=== PATIENT | female | born 1955 | race Caucasian/White ===

== ENCOUNTER 2019-10-19 05:10 | Day surgery (SDC) ==
[2019-10-11 13:57] LABS: BASO# 0.01 X1000 (0.0-0.2); BASO% 0.1 % (0.0-0.8); EOS# 0.11 X1000 (0.0-0.7); EOS% 1.3 % (0.0-10.0); HEMOGLOBIN 12.7 g/dL (12.0-16.0); LYMPH# 1.93 X1000 (1.2-3.4); LYMPH% 22.6 % (20.5-51.1); MCH 30.5 PG (27-31); MCHC 32.6 g/dL (33-37); MCV 93.8 FL (81-99); MONO# 0.47 X1000 (0.11-0.59); MONO% 5.5 % (1.7-9.3); MPV 10.2 FL (7.4-10.4); NEUT# 6.02 X1000 (1.4-6.5); NEUT% 70.5 % (42.2-75.2); PLT 256 X1000 (130-400); RBC 4.16 XMIL (4.2-5.4); RDW 13.5 % (11.5-14.5); WBC 8.54 X1000 (4.8-10.8)
[2019-10-11 14:14] LABS: AGAP 13; BUN 15 mg/dL (8-22); CALCIUM 9.2 mg/dL (8.8-10.2); CHLORIDE 103 mmol/L (98-107); COSMO 280; CREATININE 0.8 mg/dL (0.5-0.9); ESTIMATED GFR > 60; GLUCOSE 92 mg/dL (70-104); POTASSIUM 3.8 mmol/L (3.5-5.1); SODIUM 140 mmol/L (136-145); TCO2 24 mmol/L (25-35)
[2019-10-19 10:52] LABS: URINE SOURCE CATH
[2019-10-19 10:57] LABS: BILIRUBIN URINE NEGATIVE (NEGATIVE); BLOOD URINE NEGATIVE (NEGATIVE); COLOR STRAW; GLUCOSE URINE NEGATIVE (NEGATIVE); KETONE URINE NEGATIVE (NEGATIVE); LEUKOCYTES URINE NEGATIVE (NEGATIVE); NITRITE URINE NEGATIVE (NEGATIVE); PROTEIN URINE NEGATIVE (NEGATIVE); SP GRAVITY URINE 1.007; TURBIDITY URINE CLEAR (CLEAR); UR EPITHELIAL CELLS <10 /HPF (<10); URINE BACTERIA NEGATIVE /HPF; URINE RBC <10 /HPF (<10); URINE WBC <10 /HPF (<10); UROBILINOGEN URINE NORMAL (NORMAL)
[2019-10-20 11:14] VITALS: BP 112/52
== END 2019-10-20 12:38 | disposition home or self-care (01) ==
LOC: 4N 05:10 → PAT 05:10 → OPS 05:10
PROVIDERS: ATTEND Obstetrics & Gynecology